=== PATIENT | male | born 1955 | race Caucasian/White ===

== ENCOUNTER 2017-03-25 08:52 | Emergency (ER) | payer BC ==
[~2017-03-25] VITALS: Ht 180.3 cm; Wt 103.7 kg
[2017-03-25 08:58] VITALS: TEMP 36.7; Ht 180.3 cm; Wt 103.7 kg
[2017-03-25] MEDS ORDERED: SODIUM CHLORIDE 0.9% 1000ML 1,000 ML IV STA (09:32)
[2017-03-25 09:42] LABS: BASO % 0.6 %; BASO ABS # 0.04 K/uL (0-0.2); COMPLETE YES; EOS % 5.7 %; HEMATOCRIT 41.2 % (42-52); IG% 0.2 %; LYMPH % 30.6 %; LYMPH ABS # 1.95 K/uL (1.2-3.4); MEAN CELL VOLUME 87.7 fL (80-100); MEAN CORPUSCULAR HEMOGLOBIN 31.5 pg (25-34); MEAN CORPUSCULAR HGB CONC 35.9 g/dl (32-36); MEAN PLATELET VOLUME 10.6 fL (7.4-10.4); MONO % 7.1 %; NEUT % 55.8 %; PLATELET COUNT 281 K/uL (130-400); WHITE BLOOD COUNT 6.37 K/uL (4.8-10.8)
--- NOTE | 2017-03-25 09:43 | EMERGENCY ROOM VISIT NOTE ---
History Report prepared by Aide: Terell Gutierrez Under the Supervision of: Dr. Juvenal Diaz D.O. First contact with patient: 09:26 Chief Complaint: CHEST PAIN Stated Complaint: CHEST PAIN,SOB Nursing Triage Summary: Pt states he has had pain in the center of his chest for a few days, stays in the same position, no radiation. Pt states it was 8 to 9 out of 10, now 3 to 4 and has not taken anything for the pain. States at night he sweats and soaks a pillow. History of Present Illness The patient is a 62 year old male with diabetes who presents to the Emergency Room with complaints of intermittent chest pain that started 3 days ago. He describes the pain as a "bad ache". He currently says the pain is there but is tolerable. The patient says that the pain came on 3 days ago after eating some soup. The patient needed to take Tylenol that night, which helped subside his pain enough to get some sleep. He says that he has had fevers and sweats as well. He has felt that he could not get a full breath for the past few days. The patient says that the pain does not radiate anywhere from the center of his chest. He says that his sugars have also been high for the past 3 days, and has not been able to get his sugars below 240. His sugars have gone up to 300 over the past few days. He states that eating makes the pain a bit worse, and when he eats, he feels that food gets caught up in his throat. The patient has tried Tums with no relief. He did not see anyone for his symptoms. The patient drinks alcohol but is a non-smoker. He has a history of kidney stones. He takes Lisinopril for kidney stones. Source of History: patient Onset: 3 days ago Position: chest Quality: ache (bad) Timing: intermittent Modifying Factors (Worsening): eating Associated Symptoms: + SOB, + diaphoresis, + fevers Note: Associated symptoms: Sugars have been high. Feels food gets caught up in throat. Review of Systems See HPI for pertinent positives & negatives. A total of 10 systems reviewed and were otherwise negative. Past Medical & Surgical Medical Problems: (1) Diabetes (2) Kidney stones Family History Diabetes mellitus FHx: kidney disease Heart disease Hypertension Social History Smoking Status: Former Smoker Smokeless Tobacco Use: No Alcohol Use: occasionally Housing Status: lives alone Occupation Status: employed Current/Historical Medications Scheduled Fish Oil ([place]-3), 1 CAP PO DAILY Lisinopril (Zestril), 5 MG PO DAILY Metformin HCl (Metformin HCl), 2 TABS PO BID Multivitamin (Multivitamin), 1 TAB PO DAILY Omeprazole (Prilosec), 20 MG PO DAILY Potassium Citrate (Alkalinizer (Urocit-K 15), 15 MEQ PO DAILY Ranitidine Hcl (Zantac), 150 MG PO BID Tadalafil (Cialis), 5 MG PO UD Allergies Coded Allergies: No Known Allergies (Unverified , 03/25/17) Physical Exam Vital Signs Date Time Temp Pulse Resp B/P Pulse Ox O2 Delivery O2 Flow Rate FiO2 03/25/17 13:14 170/112 03/25/17 12:42 86 03/25/17 12:34 83 16 150/84 96 Room Air 03/25/17 10:10 165/94 03/25/17 08:58 96 Room Air 03/25/17 08:58 36.7 101 18 190/119 96 Room Air Physical Exam GENERAL: Patient is awake, alert, mildly anxious appearing and uncomfortable. EYES: The conjunctivae are clear. The pupils are round and reactive. EARS, NOSE, MOUTH AND THROAT: The nose is without any evidence of any deformity. Mucous membranes are moist tongue is midline NECK: The neck is nontender and supple. RESPIRATORY: Normal respiratory effort is noted there is no evidence of wheezing rhonchi or rales CARDIOVASCULAR: Regular rate and rhythm noted there no murmurs rubs or gallops normal S1 normal S2 GASTROINTESTINAL: The abdomen is moderately distended with tenderness in epigastric region and right upper quadrant. No pulsatile masses noted, no lower tenderness appreciated. BACK: No midline tenderness or or step-off noted range of motion in flexion extension as well as rotation no signs of muscle spasm noted MUSCULOSKELETAL/EXTREMITIES: There is no evidence of gross deformity full range of motion is noted in the hips and shoulders SKIN: There is no obvious evidence of any rash. There are no petechiae, pallor or cyanosis noted. NEUROLOGIC: Patient is awake alert and oriented x3. Medical Decision & Procedures ER Provider Diagnostic Interpretation: Radiology results as stated below per my review and radiologist interpretation: ABDOMEN 2VIEW W/PA CHEST RTN CLINICAL HISTORY: ABDOMINAL PAIN/GI pain. Nausea. COMPARISON STUDY: No previous studies for comparison. FINDINGS: The soft tissues, psoas shadows, renal outlines and intestinal gas pattern appear normal. There is no evidence for bowel obstruction. There is no evidence for free intraperitoneal air. No abnormal abdominal calcifications are seen. A frontal view of the chest was performed and is unremarkable. IMPRESSION: Normal study. Electronically signed by: Elijah Oropeza M.D. 03/25/2017 12:25 PM Dictated Date/Time: 03/25/2017 12:24 PM ABDOMINAL ULTRASOUND COMPLETE HISTORY: Generalized abdominal pain.. COMPARISON: None. FINDINGS: Pancreas: The pancreatic head and tail are obscured by overlying bowel gas. The remaining portions of the pancreas are within normal limits. Liver: The liver is echogenic consistent with fatty change. Gallbladder: No gallbladder wall thickening. No gallstones. CBD: 5 mm. Kidneys: Normal right kidney. Mild left hydronephrosis. There are 2 stones within the lower pole the left kidney with the largest measuring 9 mm. Spleen: Normal in size. Aorta: Normal in caliber. IVC: Patent. IMPRESSION: 1. Mild left hydronephrosis. 2. Left-sided nephrolithiasis. 3. Hepatic steatosis. 4. Normal gallbladder. Electronically signed by: Anthony Stern M.D. 03/25/2017 10:43 AM Dictated Date/Time: 03/25/2017 10:41 AM Laboratory Results 03/25/17 09:10 Red Blood Count 4.70, Mean Corpuscular Volume 87.7, Mean Corpuscular Hemoglobin 31.5, Mean Corpuscular Hemoglobin Concent 35.9, Mean Platelet Volume 10.6, Neutrophils (%) (Auto) 55.8, Lymphocytes (%) (Auto) 30.6, Monocytes (%) (Auto) 7.1, Eosinophils (%) (Auto) 5.7, Basophils (%) (Auto) 0.6, Neutrophils # (Auto) 3.56, Lymphocytes # (Auto) 1.95, Monocytes # (Auto) 0.45, Eosinophils # (Auto) 0.36, Basophils # (Auto) 0.04 03/25/17 09:10 Test 03/25/17 09:10 White Blood Count 6.37 K/uL (4.8-10.8) Red Blood Count 4.70 M/uL (4.7-6.1) Hemoglobin 14.8 g/dL (14.0-18.0) Hematocrit 41.2 % (42-52) Mean Corpuscular Volume 87.7 fL (80-100) Mean Corpuscular Hemoglobin 31.5 pg (25-34) Mean Corpuscular Hemoglobin Concent 35.9 g/dl (32-36) Platelet Count 281 K/uL (130-400) Mean Platelet Volume 10.6 fL (7.4-10.4) Neutrophils (%) (Auto) 55.8 % Lymphocytes (%) (Auto) 30.6 % Monocytes (%) (Auto) 7.1 % Eosinophils (%) (Auto) 5.7 % Basophils (%) (Auto) 0.6 % Neutrophils # (Auto) 3.56 K/uL (1.4-6.5) Lymphocytes # (Auto) 1.95 K/uL (1.2-3.4) Monocytes # (Auto) 0.45 K/uL (0.11-0.59) Eosinophils # (Auto) 0.36 K/uL (0-0.5) Basophils # (Auto) 0.04 K/uL (0-0.2) RDW Standard Deviation 38.9 fL (36.4-46.3) RDW Coefficient of Variation 12.2 % (11.5-14.5) Immature Granulocyte % (Auto) 0.2 % Immature Granulocyte # (Auto) 0.01 K/uL (0.00-0.02) Prothrombin Time 10.9 SECONDS (9.0-12.0) Prothromb Time International Ratio 1.0 (0.9-1.1) Activated Partial Thromboplast Time 27.2 SECONDS (21.0-31.0) Partial Thromboplastin Ratio 1.0 Anion Gap 8.0 mmol/L (3-11) Est Creatinine Clear Calc Drug Dose 93.6 ml/min Estimated GFR () 93.6 Estimated GFR (Non- 80.7 BUN/Creatinine Ratio 14.0 (10-20) Calcium Level 9.5 mg/dl (8.5-10.1) Total Bilirubin 0.5 mg/dl (0.2-1) Direct Bilirubin 0.1 mg/dl (0-0.2) Aspartate Amino Transf (AST/SGOT) 40 U/L (15-37) Alanine Aminotransferase (ALT/SGPT) 61 U/L (12-78) Alkaline Phosphatase 50 U/L (45-117) Total Creatine Kinase 77 U/L (39-308) Creatine Kinase MB 1.4 ng/ml (0.5-3.6) Creatine Kinase MB Ratio 1.8 (0-3.0) Troponin I < 0.015 ng/ml (0-0.045) Total Protein 7.7 gm/dl (6.4-8.2) Albumin 3.7 gm/dl (3.4-5.0) Lipase 2119 U/L (73-393) Beta-Hydroxybutyric Acid 1.39 mg/dL (0.2-2.81) Laboratory results per my review. Medications Administered Medications (Trade) Dose Ordered Sig/Shira Route Start Time Stop Time Status Last Admin Dose Admin Sodium Chloride 1,000 ml @ 999 mls/hr Q1H1M STAT IV 03/25/17 09:32 03/25/17 10:32 DC 03/25/17 10:04 999 MLS/HR Pantoprazole Sodium/Syringe (Protonix Inj/ Syringe) 10 ml @ 5 mls/min NOW ONCE IV 03/25/17 09:45 03/25/17 09:46 DC 03/25/17 10:03 5 MLS/MIN ECG Indication: chest pain Rate (beats per minute): 100 Rhythm: normal sinus Findings: no ectopy, other (no acute ST segment abnormalities) Comparison ECG Date: no prior available ED Course 0928: The patient was evaluated in room A4B. A complete history and physical examination were performed. 0932: Ordered NSS 1000 ml @ 999 mls/hr IV. 0945: Ordered Pantoprazole Sodium 40 mg/Syringe 10 ml @ 5 mls/min IV. 1126: I reevaluated and updated the patient. 1235: I reevaluated the patient and he does not want to stay in the hospital. 1305: Upon reevaluation, the patient is resting comfortably. I discussed the results and treatment plan with him. He verbalized agreement of the treatment plan. He was discharged home. Medical Decision Prior records/ancillary studies reviewed. Triage Nursing notes reviewed. Differential diagnosis: Etiologies such as appendicitis, diverticulitis, PUD, biliary pathology, UTI, pancreatitis, obstruction, mesenteric ischemia, aortic pathology, infections, inflammatory bowel disease, renal colic, as well as others were entertained. The patient is a 62-year-old male who presented to the emergency department with epigastric abdominal pain. The patient has been complaining of upper abdominal pain for quite some time he states he has not been seen by his doctor for this but he is scheduled for a follow-up appointment and is trying to establish a primary care physician in our area. 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 The patient did not appear to have any acute abnormalities noted on his cardiac workup. The patient was found have signs of pancreatitis with an elevated lipase. This does not appear to be consistent with gallstone pancreatitis based on his laboratory and radiographic studies. I discussed the patient's laboratory radiographic studies with him. He was treated with IV fluids and IV proton pump inhibitors in the emergency department. He did not wish to have any pain medication. The patient does have a history of drinking alcohol almost daily. I offered to have the patient evaluated by gastroenterology as well as the hospitalist group for possible inpatient management. The patient did not wish to be managed as an inpatient for this. He was encouraged to drink plenty clear liquids. He was set up with an outpatient appointment with gastroenterology. He was encouraged to continue all medications as prescribed and was started on a proton pump inhibitor as well as an H2 nash. He was also encouraged to avoid any further alcohol intake and return to the emergency department immediately if symptoms change worsen or the need arises. Impression Primary Impression: Epigastric pain Additional Impression: Pancreatitis Scribe Attestation The scribe's documentation has been prepared under my direction and personally reviewed by me in its entirety. I confirm that the note above accurately reflects all work, treatment, procedures, and medical decision making performed by me. Departure Information Dispostion Home / Self-Care Prescriptions Ranitidine Hcl (ZANTAC) 150 Mg Tab 150 MG PO BID, #60 TAB Prov: Juvenal Diaz, DO 03/25/17 Omeprazole (Prilosec) 20 Mg Capcr 20 MG PO DAILY, #30 CAP Prov: Juvenal Diaz, DO 03/25/17 Referrals No Doctor, Assigned (PCP) Jaylene Bailey,C.R.N.P. Forms HOME CARE DOCUMENTATION FORM, IMPORTANT VISIT INFORMATION Patient Instructions [facility], Pancreatitis Additional Instructions Follow-up with the GI doctor tomorrow as scheduled. I would recommend a clear liquid diet. Avoid any fatty spicy or fried foods. Avoid any further alcohol use. Continue all medications as prescribed. Return to the emergency department immediately if symptoms change worsen or the need arises. Problem Qualifiers Additional Impression: Pancreatitis Chronicity: acute Pancreatitis type: unspecified pancreatitis type Acute pancreatitis complication: unspecified Qualified Codes: K85.90 - Acute pancreatitis without necrosis or infection, unspecified
[2017-03-25] MEDS ORDERED: PANTOprazole INJ 40 MG in SYRINGE 0 ML IV ONE (09:45)
[2017-03-25 09:46] LABS: PROTHROMBIN TIME (PATIENT) 10.9 SECONDS (9.0-12.0)
[2017-03-25 09:51] LABS: ALT/SGPT 61 U/L (12-78); AST/SGOT 40 U/L (15-37); BLOOD UREA NITROGEN 14 mg/dl (7-18); CARBON DIOXIDE 25 mmol/L (21-32); CHLORIDE 103 mmol/L (98-107); CREATININE 0.99 mg/dl (0.60-1.40); GLUCOSE 324 mg/dl (70-99); POTASSIUM 4.2 mmol/L (3.5-5.1); SODIUM 136 mmol/L (136-145)
[2017-03-25 09:53] LABS: CALCIUM 9.5 mg/dl (8.5-10.1)
[2017-03-25 09:55] LABS: ALKALINE PHOSPHATASE 50 U/L (45-117)
[2017-03-25 10:02] LABS: BETA-HYDROXYBUTYRATE 1.39 mg/dL (0.2-2.81); CKMB/CK RATIO 1.8 (0-3.0)
--- NOTE | 2017-03-25 10:44 | DIAGNOSTIC IMAGING REPORT ---
ABDOMINAL ULTRASOUND COMPLETE HISTORY: Generalized abdominal pain.. COMPARISON: None. FINDINGS: Pancreas: The pancreatic head and tail are obscured by overlying bowel gas. The remaining portions of the pancreas are within normal limits. Liver: The liver is echogenic consistent with fatty change. Gallbladder: No gallbladder wall thickening. No gallstones. CBD: 5 mm. Kidneys: Normal right kidney. Mild left hydronephrosis. There are 2 stones within the lower pole the left kidney with the largest measuring 9 mm. Spleen: Normal in size. Aorta: Normal in caliber. IVC: Patent. IMPRESSION: 1. Mild left hydronephrosis. 2. Left-sided nephrolithiasis. 3. Hepatic steatosis. 4. Normal gallbladder. Electronically signed by: Anthony Stern M.D. 03/25/2017 10:43 AM Dictated Date/Time: 03/25/2017 10:41 AM
[2017-03-25] MEDS ORDERED: OMEG10007 PO (11:03)
[2017-03-25] MEDS ORDERED: POTATAB13 PO (11:03)
[2017-03-25] MEDS ORDERED: MULT-506 PO (11:03)
[2017-03-25] MEDS ORDERED: LISI-729 PO (11:03)
[2017-03-25] MEDS ORDERED: TADA5TAB11 PO (11:03)
[2017-03-25] MEDS ORDERED: GLC500 PO (11:03)
--- NOTE | 2017-03-25 12:26 | DIAGNOSTIC IMAGING REPORT ---
ABDOMEN 2VIEW W/PA CHEST RTN CLINICAL HISTORY: ABDOMINAL PAIN/GI pain. Nausea. COMPARISON STUDY: No previous studies for comparison. FINDINGS: The soft tissues, psoas shadows, renal outlines and intestinal gas pattern appear normal. There is no evidence for bowel obstruction. There is no evidence for free intraperitoneal air. No abnormal abdominal calcifications are seen. A frontal view of the chest was performed and is unremarkable. IMPRESSION: Normal study. Electronically signed by: Elijah Oropeza M.D. 03/25/2017 12:25 PM Dictated Date/Time: 03/25/2017 12:24 PM
[2017-03-25 12:34] VITALS: O2SAT 96
[2017-03-25 12:42] VITALS: PULSE 86
[2017-03-25] MEDS ORDERED: OMEP20CA59 PO (13:09)
[2017-03-25] MEDS ORDERED: RANI150T3 PO (13:09)
[2017-03-25 13:14] VITALS: BP 170/112
[2017-06-01] MEDS ORDERED: POTA10CA28 PO (13:30)
[2017-06-01] MEDS ORDERED: LISI-789 PO (13:30)
[2017-06-05] MEDS ORDERED: OXYC-57 PO (07:34)
== END 2017-03-25 13:36 | disposition home or self-care (01) ==
LOC: C.EDB 08:54 → C.EDA 13:36
DX: R10.13 Epigastric pain (principal); K85.90 Acute pancreatitis without necrosis or infection, unspecified; E11.9 Type 2 diabetes mellitus without complications; R50.9 Fever, unspecified; R06.02 Shortness of breath; Z79.84 Long term (current) use of oral hypoglycemic drugs; Z79.899 Other long term (current) drug therapy; Z87.442 Personal history of urinary calculi; Z87.891 Personal history of nicotine dependence; Z82.49 Family history of ischemic heart disease and other diseases of the circulatory system; Z83.3 Family history of diabetes mellitus; Z84.1 Family history of disorders of kidney and ureter

== ENCOUNTER → 2017-03-26 | Outpatient (CLI) | payer BC ==
[~2017-03-26] MED LIST: GLC500 PO; LISI-729 PO; LISI-789 PO; MULT-506 PO; OMEG10007 PO; OMEP20CA59 PO; OXYC-57 PO; POTA10CA28 PO; POTATAB13 PO; RANI150T3 PO; TADA5TAB11 PO
[2017-03-26 17:38] LABS: BASO % 0.6 %; BASO ABS # 0.04 K/uL (0-0.2); COMPLETE YES; EOS % 4.3 %; HEMATOCRIT 41.6 % (42-52); IG% 0.1 %; LYMPH % 36.5 %; LYMPH ABS # 2.61 K/uL (1.2-3.4); MEAN CELL VOLUME 87.9 fL (80-100); MEAN CORPUSCULAR HEMOGLOBIN 30.7 pg (25-34); MEAN CORPUSCULAR HGB CONC 34.9 g/dl (32-36); MEAN PLATELET VOLUME 10.6 fL (7.4-10.4); MONO % 8.1 %; NEUT % 50.4 %; PLATELET COUNT 288 K/uL (130-400); RED BLOOD COUNT 4.73 M/uL (4.7-6.1); WHITE BLOOD COUNT 7.15 K/uL (4.8-10.8)
[2017-03-26 18:25] LABS: ALT/SGPT 61 U/L (12-78); AMYLASE 53 U/L (25-115); AST/SGOT 33 U/L (15-37); BLOOD UREA NITROGEN 16 mg/dl (7-18); BUN/CREATININE RATIO 16.7 (10-20); CALCIUM 9.3 mg/dl (8.5-10.1); CARBON DIOXIDE 26 mmol/L (21-32); CHLORIDE 106 mmol/L (98-107); CREATININE 0.93 mg/dl (0.60-1.40); GLUCOSE 143 mg/dl (70-99); SODIUM 141 mmol/L (136-145)
[2017-03-26 18:27] LABS: ALKALINE PHOSPHATASE 53 U/L (45-117); TRIGLYCERIDES 182 mg/dl (0-150)
[2017-03-26 20:07] LABS: POTASSIUM 3.5 mmol/L (3.5-5.1)
[2017-03-31 17:37] LABS: IGA SERUM 188 mg/dL (81-463); TIS TRANS IGA 1 U/mL (<4)
== END | disposition home or self-care (01) ==
LOC: C.LAB1850 16:06
PROVIDERS: ATTEND Registered Nurse
DX: R10.13 Epigastric pain (principal); K85.90 Acute pancreatitis without necrosis or infection, unspecified; K52.9 Noninfective gastroenteritis and colitis, unspecified; R74.8 Abnormal levels of other serum enzymes

== ENCOUNTER → 2017-04-07 | Outpatient (CLI) | payer BC | END | disposition home or self-care (01) | LOC: C.LAB1850 13:27 | PROVIDERS: ATTEND Registered Nurse | DX: R74.8 Abnormal levels of other serum enzymes (principal) ==

== ENCOUNTER → 2017-04-23 | Outpatient (CLI) | payer BC ==
[~2017-04-23] MED LIST changes: +OPTIRAY 320 IV PRN
--- NOTE | 2017-04-23 10:45 | DIAGNOSTIC IMAGING REPORT ---
CT ABD WITH IV AND ORAL CONT (CT) CLINICAL HISTORY: Upper abdominal pain. Elevated lipase. Possible pancreatitis. COMPARISON STUDY: None. TECHNIQUE: Following the IV administration of 100 mL of Optiray-320, CT scan of the abdomen and pelvis was performed from the lung bases to the proximal femurs. Images are reviewed in the axial, sagittal, and coronal planes. IV contrast was administered without complication. CT DOSE: 732.44 mGycm FINDINGS: Lower chest: There are minor basilar atelectatic changes. Liver: There is hepatic steatosis. No focal masses are visualized. Gallbladder: Unremarkable. Spleen: Normal in size and attenuation. Pancreas: No pancreatic masses are visualized. There are no peripancreatic fluid collections. There is a punctate calcification within the pancreatic head. Adrenal glands: Unremarkable. Kidneys: There are bilateral renal calculi. The largest on the right measures 3 mm. The largest on the left measures 7 mm. There is mild fullness of each renal collecting system. There is a 6 mm left renal cyst. Bowel: There is no pathologic bowel dilatation within the visualized portion of the upper abdomen Peritoneum: There is no evidence of upper abdominal ascites Vasculature: The abdominal aorta is normal in course and caliber. Adenopathy: Aortocaval lymph nodes are the upper limits of normal in size. Skeletal structures: No destructive osseous lesions are seen. IMPRESSION: 1. Hepatic steatosis 2. No CT manifestations of acute pancreatitis 3. Bilateral nephrolithiasis. Mild fullness of each renal collecting system. 4. Retroperitoneal lymph nodes at the upper limits of normal in size Electronically signed by: Gerry Busch M.D. 04/23/2017 10:44 AM Dictated Date/Time: 04/23/2017 10:37 AM
== END | disposition home or self-care (01) ==
LOC: C.CTS 09:30
PROVIDERS: ATTEND Registered Nurse
DX: K85.90 Acute pancreatitis without necrosis or infection, unspecified (principal); R10.13 Epigastric pain; R74.8 Abnormal levels of other serum enzymes

== ENCOUNTER → 2017-05-28 | Outpatient (CLI) | payer BC ==
[~2017-05-28] MED LIST changes: -OPTIRAY 320 IV PRN
== END | disposition home or self-care (01) ==
LOC: C.LABSPEC 17:00
PROVIDERS: ATTEND Nurse Practitioner Family
DX: N20.0 Calculus of kidney (principal)

== ENCOUNTER → 2017-06-05 | Day surgery (SDC) | payer BC ==
[2017-05-29 10:05] LABS: BASO % 0.7 %; BASO ABS # 0.04 K/uL (0-0.2); COMPLETE YES; EOS % 4.3 %; HEMATOCRIT 41.9 % (42-52); LYMPH % 38.1 %; LYMPH ABS # 2.14 K/uL (1.2-3.4); MEAN CELL VOLUME 87.7 fL (80-100); MEAN CORPUSCULAR HGB CONC 35.3 g/dl (32-36); MEAN PLATELET VOLUME 10.7 fL (7.4-10.4); MONO % 7.3 %; NEUT % 49.6 %; PLATELET COUNT 228 K/uL (130-400); RED BLOOD COUNT 4.78 M/uL (4.7-6.1); WHITE BLOOD COUNT 5.61 K/uL (4.8-10.8)
--- NOTE | 2017-05-29 10:27 | DIAGNOSTIC IMAGING REPORT ---
K[facility] CLINICAL HISTORY: Nephrolithiasis. COMPARISON STUDY: CT of the abdomen and pelvis April 23, 2017 and abdominal series March 25, 2017. FINDINGS: Bowel gas pattern is normal. There is a 7 mm x 2 mm calculus within the lower pole of the right kidney. Note is made of an 8 mm calculus within the lower pole of the left kidney. Additional calcific densities adjacent to or overlying the renal shadows are likely vascular in etiology. Pelvic calcifications are unchanged since exam of March 25, 2017 and statistically reflect phleboliths. There are prostatic calcifications. IMPRESSION: 1. Bilateral nephrolithiasis. 2. Several pelvic calcifications which are indeterminate but likely reflect phleboliths. Electronically signed by: Alejandro Busch M.D. 05/29/2017 10:26 AM Dictated Date/Time: 05/29/2017 10:21 AM
[2017-05-29 10:36] LABS: BLOOD UREA NITROGEN 21 mg/dl (7-18); BUN/CREATININE RATIO 21.1 (10-20); CALCIUM 9.1 mg/dl (8.5-10.1); CARBON DIOXIDE 29 mmol/L (21-32); CHLORIDE 104 mmol/L (98-107); GLUCOSE 202 mg/dl (70-99); POTASSIUM 4.2 mmol/L (3.5-5.1); SODIUM 141 mmol/L (136-145)
[2017-06-01 13:31] VITALS: Ht 182.9 cm; Wt 97.3 kg
--- NOTE | 2017-06-04 14:32 | DIAGNOSTIC IMAGING REPORT ---
KUB CLINICAL HISTORY: 62 years-old Male presenting with recurrent kidney stones. TECHNIQUE: Single supine view of the abdomen was obtained. COMPARISON: 05/29/2017. FINDINGS: Again demonstrated are bilateral renal calculi, the largest at the right lower pole. Gastric calcification projects over the left renal pelvis, best appreciated on most recent CT from 04/23/2017. Phleboliths noted in the pelvis as well as possible prostatic calcification in the midline near the bladder neck. Nonobstructive bowel gas pattern. Osseous structures normal. IMPRESSION: 1. Unchanged appearance of bilateral lower pole renal calculi. Electronically signed by: Johnie Eaton M.D. 06/04/2017 2:31 PM Dictated Date/Time: 06/04/2017 2:28 PM
[~2017-06-05] VITALS: Ht 182.9 cm; Wt 97.3 kg
[~2017-06-05] MED LIST changes: +ATROPINE SULFATE 0.1 MG/ML 5ML SYR IV PRN; +CIPROFLOXACIN / D5W 400 MG IV SCH; +DEXAMETHASONE SOD INJ 4 MG/ML VIAL ONE; +EpHEDrine SULFATE INJ 50 MG/ML AMP IV PRN; +FENTANYL CITRATE INJ 50 MCG/1 ML 2 ML VIAL IV PRN; +FENTANYL CITRATE INJ 50 MCG/1 ML 2 ML VIAL ONE; +FLUMAZENIL 0.1 MG/1 ML 10 ML VIAL IV PRN; +HYDROmorphone INJ 2 MG/ML SYR/VIAL IV PRN; +LABETALOL HCL IV 5 MG/ML 20ML IV PRN; +LACTATED RINGER'S 1000ML 1,000 ML IV SCH; +LIDOCAINE HCL 2% 2 ML VIAL (20MG/ML) ONE; -LISI-729 PO; +MEPERIDINE HCL 25 MG/ML CARP IV PRN; +MIDAZOLAM HCL 1 MG/ML 2ML VIAL ONE; +NALOXONE HCL 0.4 MG/1 ML VIAL/CARP IV PRN; -OMEP20CA59 PO; +ONDANSETRON INJ 2 MG/ML 2 ML VIAL IV PRN; +ONDANSETRON INJ 2 MG/ML 2 ML VIAL ONE; +OXYCODONE/ACETAMINOPHEN 5-325 TAB PO PRN; +PHENYLEPHRINE 100MCG/ML 5ML SYR IV PRN; -POTATAB13 PO; +PROPOFOL IV EMULSION 10 MG/ML 20 ML VIAL IV ONE; -RANI150T3 PO; -TADA5TAB11 PO
--- NOTE | 2017-06-05 07:00 | History & Physical Bridge Note ---
H&P Re-Evaluation Bridge Note: I have examined the patient, reviewed the History & Physical and in the interval since the performance of the History & Physical I have noted the following changes of clinical significance: No changes noted
--- NOTE | 2017-06-05 07:36 | Discharge Instructions ---
Discharge Instructions Date of Service Jun 05, 2017. Admission Reason for Admission: Stones;Recurrent Kidney Stones N20.0 Discharge Discharge Diagnosis / Problem: L renal stone s/p ESWL Discharge Goals Goal(s): Improve function, Improve disease control Activity Recommendations Activity Limitations: as noted below Lifting Limitations: no more than 25 pounds, gradually increase as tolerated ( over 3 days) Exercise/Sports Limitations: rest today, gradually increase as tolerated (over 3 days) May Resume Sexual Activity: when tolerated Shower/Bathe: no limitations Driving or Machine Use: resume 1 day after discharge . Instructions / Follow-Up Instructions / Follow-Up Strain urine as instructed Follow-up visit Jun 16 at 11:20 AM in office with KUB Xray before visit Discharge Diet Recommended Diet: Regular Diet (good fluid intake) Procedures Procedures Performed: Left Extracorporeal Shock Wave Lithotripsy-Renal Pending Studies Studies pending at discharge: no Laboratory Results Lipid Panel Test 03/26/17 16:11 Range/Units Triglycerides Level 182 H 0-150 mg/dl Medical Emergencies . Who to Call and When: Medical Emergencies: If at any time you feel your situation is an emergency, please call 911 immediately. . Non-Emergent Contact Non-Emergency issues call your: Urologist Call Non-Emergent contact if: you have a fever, temperature is above 101, your pain is not controlled, your pain is worsening, your pain is unusual for you, your pain is concerning you, you have any medication questions . . "Provider Documentation" section prepared by Johny Ryan. . VTE Core Measure Inpt VTE Proph given/why not?: SCD's [place] Drug Monitoring Program Search Results: patient reviewed within database, no issues identified
--- NOTE | 2017-06-05 07:40 | [facility] Operative Report ---
Operative Report Operative Date Jun 05, 2017. Pre-Operative Diagnosis Left 7 mm renal calculi Post-Operative Diagnosis Same as pre-op Procedure(s) Performed Left Extracorporeal Shock Wave Lithotripsy-Renal Surgeon Dr. Viral Ryan [place] [facility] Roller Surgeon(s) None Estimated Blood Loss 0 mL Findings Good stone fragmentation on fluoro Specimens None Drains NA Anesthesia [facility] Complication(s) None Disposition Recovery Room / PACU Indications 62 yo male with a L renal stone for ESWL. Description of Procedure The patient was brought to the litho suite. He was correctly identified and the stone was visualized on his most recent x-rays. After the correct time out was performed the patient was positioned over the therapy head. An adequate level of anesthesia was administered. The extracorporeal shockwave lithotripsy treatment was then commenced. Please see the [facility] Management sheet for complete treatment summary. After completion of the procedure the patient was taken to the recovery room in stable condition. I attest to the content of the Intraoperative Record and any orders documented therein. Any exceptions are noted below.
[2017-06-05 07:46] VITALS: TEMP 36.5
--- NOTE | 2017-06-05 08:00 | Anesthesia Progress Nt - [facility] ---
Anesthesia Post Op Note Date & Time Jun 05, 2017 at 08:00 Vital Signs Pain Intensity: 0 Vital Signs Past 12 Hours Date Time Temp Pulse Resp B/P (MAP) Pulse Ox O2 Delivery O2 Flow Rate FiO2 06/05/17 07:46 36.5 74 16 168/93 (118) 95 Room Air 06/05/17 06:32 36.8 72 22 145/80 (101) 95 Room Air Notes Mental Status: alert / awake / arousable, participated in evaluation Pt Amnestic to Procedure: Yes Nausea / Vomiting: adequately controlled Pain: adequately controlled Airway Patency, RR, SpO2: stable & adequate BP & HR: stable & adequate Hydration State: stable & adequate Anesthetic Complications: no major complications apparent
[2017-06-05 08:07] VITALS: BP 148/84; PULSE 70; O2SAT 95
== END | disposition home or self-care (01) ==
LOC: X.SURG 06:20
PROVIDERS: ATTEND Urology
DX: N20.0 Calculus of kidney (principal); N52.9 Male erectile dysfunction, unspecified; E11.9 Type 2 diabetes mellitus without complications; K21.9 Gastro-esophageal reflux disease without esophagitis; E87.6 Hypokalemia; Z87.891 Personal history of nicotine dependence; Z79.82 Long term (current) use of aspirin; Z79.899 Other long term (current) drug therapy

== ENCOUNTER → 2017-06-16 | Outpatient (CLI) | payer BC ==
[~2017-06-16] MED LIST changes: -ATROPINE SULFATE 0.1 MG/ML 5ML SYR IV PRN; -CIPROFLOXACIN / D5W 400 MG IV SCH; -DEXAMETHASONE SOD INJ 4 MG/ML VIAL ONE; -EpHEDrine SULFATE INJ 50 MG/ML AMP IV PRN; -FENTANYL CITRATE INJ 50 MCG/1 ML 2 ML VIAL IV PRN; -FENTANYL CITRATE INJ 50 MCG/1 ML 2 ML VIAL ONE; -FLUMAZENIL 0.1 MG/1 ML 10 ML VIAL IV PRN; -HYDROmorphone INJ 2 MG/ML SYR/VIAL IV PRN; -LABETALOL HCL IV 5 MG/ML 20ML IV PRN; -LACTATED RINGER'S 1000ML 1,000 ML IV SCH; -LIDOCAINE HCL 2% 2 ML VIAL (20MG/ML) ONE; -MEPERIDINE HCL 25 MG/ML CARP IV PRN; -MIDAZOLAM HCL 1 MG/ML 2ML VIAL ONE; -NALOXONE HCL 0.4 MG/1 ML VIAL/CARP IV PRN; -ONDANSETRON INJ 2 MG/ML 2 ML VIAL IV PRN; -ONDANSETRON INJ 2 MG/ML 2 ML VIAL ONE; -OXYCODONE/ACETAMINOPHEN 5-325 TAB PO PRN; -PHENYLEPHRINE 100MCG/ML 5ML SYR IV PRN; -PROPOFOL IV EMULSION 10 MG/ML 20 ML VIAL IV ONE
--- NOTE | 2017-06-16 09:04 | DIAGNOSTIC IMAGING REPORT ---
KUB CLINICAL HISTORY: Nephrolithiasis. Recent lithotripsy. FINDINGS: 2 AP supine abdominal radiographs are compared to study dated 06/04/2017 and correlated with abdominal CT dated 04/23/2017. There is a nonobstructed abdominal bowel gas pattern. Moderate colonic fecal retention is identified. There are small bilateral nonobstructing renal calculi. The left lower pole renal calculus has significantly decreased in size from 06/04/2017. No calcifications are seen along the course of the ureters. Pelvic phleboliths are unchanged. The bony structures appear intact. Prostatic calcifications are observed in the pelvis. IMPRESSION: There are small bilateral nonobstructing renal calculi. The largest calculus in the left lower pole seen on 06/04/2017 has almost completely resolved from previous. Electronically signed by: Erasto Maurer M.D. 06/16/2017 9:03 AM Dictated Date/Time: 06/16/2017 9:00 AM
== END | disposition home or self-care (01) ==
LOC: C.RAD 08:33
PROVIDERS: ATTEND Nurse Practitioner Family
DX: N20.0 Calculus of kidney (principal)

== ENCOUNTER → 2017-08-28 | Outpatient (CLI) | payer BC ==
[2017-08-28 09:37] LABS: HEMATOCRIT 42.7 % (42-52); MEAN CELL VOLUME 87.1 fL (80-100); MEAN CORPUSCULAR HEMOGLOBIN 30.2 pg (25-34); MEAN CORPUSCULAR HGB CONC 34.7 g/dl (32-36); MEAN PLATELET VOLUME 10.9 fL (7.4-10.4); PLATELET COUNT 215 K/uL (130-400); WHITE BLOOD COUNT 6.51 K/uL (4.8-10.8)
[2017-08-28 09:59] LABS: ESTIMATED AVERAGE GLUCOSE 143 mg/dl; HA1C FLAG Normal (Normal)
[2017-08-28 10:03] LABS: ALT/SGPT 43 U/L (12-78); BLOOD UREA NITROGEN 17 mg/dl (7-18); BUN/CREATININE RATIO 19.7 (10-20); CALCIUM 9.2 mg/dl (8.5-10.1); CARBON DIOXIDE 27 mmol/L (21-32); CHLORIDE 106 mmol/L (98-107); CHOLESTEROL 153 mg/dl (0-200); CREATININE 0.88 mg/dl (0.60-1.40); GLUCOSE 165 mg/dl (70-99); POTASSIUM 4.1 mmol/L (3.5-5.1); SODIUM 141 mmol/L (136-145); TRIGLYCERIDES 152 mg/dl (0-150); VERY LOW DENSITY LIPOPROT CALC 30 mg/dl
[2017-08-28 10:06] LABS: ALB/GLOB RATIO 1.2 (0.9-2); ALKALINE PHOSPHATASE 44 U/L (45-117); AST/SGOT 21 U/L (15-37); CHOLESTEROL/HDL RATIO 3.8; HDL CHOLESTEROL 40 mg/dl; LDL CHOLESTEROL CALCULATED 83 mg/dl
== END | disposition home or self-care (01) ==
LOC: C.LAB 07:23
PROVIDERS: ATTEND Internal Medicine
DX: Z00.00 Encounter for general adult medical examination without abnormal findings (principal); N52.9 Male erectile dysfunction, unspecified; R20.0 Anesthesia of skin; E11.9 Type 2 diabetes mellitus without complications; E87.6 Hypokalemia

== ENCOUNTER → 2018-03-03 | Outpatient (CLI) | payer BC ==
[~2018-03-03] MED LIST changes: -OXYC-57 PO
[2018-03-03 12:18] LABS: HEMOGLOBIN A1C 7.3 % (4.5-5.6)
[2018-03-03 12:19] LABS: ALBUMIN 3.9 gm/dl (3.4-5.0); ALT/SGPT 66 U/L (12-78); AST/SGOT 36 U/L (15-37); BLOOD UREA NITROGEN 20 mg/dl (7-18); CALCIUM 8.9 mg/dl (8.5-10.1); CARBON DIOXIDE 24 mmol/L (21-32); CREATININE 1.01 mg/dl (0.60-1.40); GLUCOSE 178 mg/dl (70-99); SODIUM 136 mmol/L (136-145); URIC ACID 5.1 mg/dl (2.6-7.2)
[2018-03-03 12:24] LABS: ALKALINE PHOSPHATASE 44 U/L (45-117); TOTAL PROTEIN 7.4 gm/dl (6.4-8.2)
== END | disposition home or self-care (01) ==
LOC: C.LAB1850 09:51
PROVIDERS: ATTEND Physician Assistant
DX: E11.9 Type 2 diabetes mellitus without complications (principal); M25.529 Pain in unspecified elbow; Z12.5 Encounter for screening for malignant neoplasm of prostate